=== PATIENT | male | born 1995 | race Caucasian/White ===

== ENCOUNTER → 2019-10-23 | Outpatient (REF) | payer OTHER ==
[2019-10-23 21:53] LABS: CHLAMYDIA DNA AMPLIFICATION POSITIVE (NEGATIVE); GC DNA AMPLIFICATION NEGATIVE (NEGATIVE)
[2019-10-24 10:58] LABS: HEPATITIS B SURFACE ANTIBODY NEGATIVE (POSITIVE); HEPATITIS B SURFACE ANTIGEN NEGATIVE (NEGATIVE); HEPATITIS C VIRUS ABY INDEX 0.1 INDEX (<0.8)
[2019-10-24 13:47] LABS: HIV 1&2 SCREEN CENTAUR NEGATIVE (NEGATIVE)
== END ==
LOC: M LABDRWAD 15:43
PROVIDERS: ATTEND Physician Assistant
DX: Z20.9 Contact with and (suspected) exposure to unspecified communicable disease (principal)

== ENCOUNTER → 2020-09-17 | Outpatient (CLI) | payer BC ==
--- NOTE | 2020-09-17 10:51 | REPVR ---
PROCEDURE INFORMATION: Exam: MR Lumbar Spine Without and With Contrast Exam date and time: 09/17/2020 9:27 AM Age: 25 years old Clinical indication: Low back pain; Additional info: Sciatica TECHNIQUE: Imaging protocol: Multiplanar magnetic resonance images of the lumbar spine without and with intravenous contrast. Contrast material: PROHANCE; Contrast volume: 20 ml; Contrast route: INTRAVENOUS (IV); COMPARISON: No relevant prior studies available. FINDINGS: Vertebrae: There is straightening of the lumbar spine which could be secondary to positioning or muscle spasm. The lumbar vertebral bodies are normal in height,signal intensity and alignment.No acute fracture or dislocation is seen. Spinal epidural space: There is no evidence of epidural masses or hemorrhage. Spinal cord: The conus medullaris is normal. No abnormal contrast enhancement is seen. L1-L2: There is no significant degenerative disc herniation.The spinal canal and neural foramina are patent and without significant stenosis. L2-L3: There is no significant degenerative disc herniation.The spinal canal and neural foramina are patent and without significant stenosis. L3-L4: There is no significant degenerative disc herniation.The spinal canal and neural foramina are patent and without significant stenosis. L4-L5: Examination reveals the L4-L5 disc to be mildly reduced in height and T2 signal indicating degeneration. It also demonstrates a large posterior central herniation causing severe spinal canal stenosis and marked compression and posterior displacement of the thecal sac and crowding of the cauda equina nerve roots at this level. There is severe bilateral lateral recess narrowing noted as well.There is mild bilateral foraminal stenosis. L5-S1: There is no significant degenerative disc herniation.The spinal canal and neural foramina are patent and without significant stenosis. Soft tissues: The prevertebral soft tissues appear normal. Other findings: Remainder of the lumbar disc spaces are well maintained. IMPRESSION: 1. Examination reveals the L4-L5 disc to be mildly reduced in height and T2 signal indicating degeneration. It also demonstrates a large posterior central herniation causing severe spinal canal stenosis and marked compression and posterior displacement of the thecal sac and crowding of the cauda equina nerve roots at this level. There is severe bilateral lateral recess narrowing noted as well.There is mild bilateral foraminal stenosis. This is a surgical disc and clinical correlation to exclude cauda equina syndrome. Neuro surgical or orthopedic consultation is recommended. 2. No abnormal contrast enhancement is seen. Electronically signed by: Rodney Bass On 09/17/2020 10:50:56 AM
== END ==
LOC: M PLARAD 08:09
PROVIDERS: ATTEND Physician Assistant
DX: M54.31 Sciatica, right side (principal); M51.36 Other intervertebral disc degeneration, lumbar region

== ENCOUNTER → 2020-09-18 | Outpatient (CLI) | payer BC | LOC: M LABSMTC 11:26 | PROVIDERS: ATTEND Anesthesiology | DX: Z20.828 Contact with and (suspected) exposure to other viral communicable diseases (principal) ==

== ENCOUNTER 2020-09-19 10:18 | Day surgery (SDC) | payer BC ==
[~2020-09-19] VITALS: Ht 177.8 cm; Wt 127.0 kg
[~2020-09-19 10:18] MED LIST: GABAPENTIN 300 MG CAP PO ONE; LIDOCAINE 1% MDV 20ML VIAL SQ PRN; LIDOCAINE 2% 100MG/5ML SDV (FOR ANES.) As Ordered ONE; LR 1,000 ML IV ONE; MIDAZOLAM INJ 2MG/2ML VIAL (J2250 PER 1MG) As Ordered ONE; ONDANSETRON 4MG/2ML VIAL As Ordered ONE; PERCOCET 5MG/325MG TAB PO ONE; ROCURONIUM BROMIDE 50 MG/5 ML VIAL As Ordered ONE; ceFAZolin SOD 1 GM in D5W MINI-BAG PLUS 50 ML IV ONE; ceFAZolin SOD 2 GM in IV 1 EA IV ONE; dexameTHASONE 4 MG/ML 1ML VIAL (J1100 PER 1MG) As Ordered ONE; fentaNYL 250 MCG/5 ML INJECTION (J3010) As Ordered ONE; propofoL 200 MG/20 ML VIAL As Ordered ONE
[2020-09-19] MEDS ORDERED: BUPIVACAINE HCL 0.25% 10ML VIAL As Ordered ONE (11:59)
[2020-09-19] MEDS ORDERED: TRANEXAMIC ACID 100 MG/ML 10ML VIAL As Ordered ONE (11:59)
[2020-09-19] MEDS ORDERED: THROMBIN SOLN 20,000 UNITS KIT As Ordered ONE (11:59)
[2020-09-19] MEDS ORDERED: BUPIVACAINE HCL 0.25% 30ML VIAL As Ordered ONE (11:59)
[2020-09-19] MEDS ORDERED: BACITRACIN PWD 50,000 UNITS VIAL As Ordered ONE (12:00)
[2020-09-19] MEDS ORDERED: BUPIVACAINE LIPOSOME/PF 1.3% 20ML VIAL (13.3MG/ML)(EXPAREL)(C9290 PER1MG) As Ordered ONE (12:00)
[2020-09-19] MEDS ORDERED: EPINEPHrine INJ 1 MG/ML 1ML AMP As Ordered ONE (12:00)
[2020-09-19] MEDS ORDERED: BUPIVACAINE/EPIN 0.5% 30 ML VIAL As Ordered ONE (12:01)
[2020-09-19] MEDS: BUPIVACAINE/EPIN 0.25% 30 ML VIAL As Ordered ONE ×2 (12:44→13:24)
--- NOTE | 2020-09-19 13:57 | REP ---
INDICATION: RIGHT L4/L5 MICRODISECTOMY. COMPARISON: None. TECHNIQUE: Single cross-table lateral view of the lumbar spine intraoperatively. FINDINGS: The tip of a metallic probe is seen posterior to the L5 vertebral body. IMPRESSION: Tip of a metallic probe is seen posterior to the L5 vertebral body. <Electronically signed by Erasmo Lea > 09/19/20 [id number]
[2020-09-19] MEDS ORDERED: GLYCOPYRROLATE INJ 0.2 MG/ML 2 ML VIAL As Ordered ONE (14:40)
[2020-09-19] MEDS ORDERED: NEOSTIGMINE 10MG/10ML VIAL (J2710 PER 0.5MG) As Ordered ONE (14:40)
[2020-09-19] MEDS ORDERED: ACETAMINOPHEN 1000MG 100ML IV BTL (OFIRMEV) (J0131 PER 10MG) As Ordered ONE (15:00)
[2020-09-19] MEDS ORDERED: LR 1,000 ML IV SCH ×2 (15:35)
[2020-09-19] MEDS ORDERED: oxyCODONE 5MG TAB PO PRN (15:35)
[2020-09-19] MEDS ORDERED: ONDANSETRON 4MG/2ML VIAL IV PRN (15:35)
[2020-09-19] MEDS ORDERED: fentaNYL 100 MCG/2 ML INJECTION (J3010) IV PRN (15:35)
[2020-09-19] MEDS ORDERED: PERCOCET 5MG/325MG TAB PO PRN (15:40)
[2020-09-19] MEDS ORDERED: PROMETHAZINE INJ 25 MG/ML VIAL (J2550) IV PRN (15:40)
[2020-09-19] MEDS ORDERED: HYDROMORPHONE HCL 0.5 MG/ 0.5 ML SYRINGE (J1170 PER 1) IV PRN (15:45)
[2020-09-19 16:45] VITALS: BP 112/60
[2020-09-19 17:15] VITALS: BP 108/66
[2020-09-19 18:15] VITALS: BP 99/58
[2020-09-19] MEDS: ceFAZolin SOD 1 GM in D5W MINI-BAG PLUS 50 ML IV SCH (18:20)
[2020-09-19 19:15] VITALS: BP 100/57
[2020-09-19] MEDS: ceFAZolin SOD 2 GM in IV 1 EA IV SCH (20:08)
[2020-09-19 20:15] VITALS: BP 102/63
[2020-09-19] MEDS ORDERED: METAMUCIL (PSYLLIUM) PACKET PO ONE (21:00)
[2020-09-19] MEDS: PERCOCET 5MG/325MG TAB PO PRN (21:44)
[2020-09-19 22:00] VITALS: BP 136/70
[2020-09-20] MEDS: ceFAZolin SOD 1 GM in D5W MINI-BAG PLUS 50 ML IV SCH (00:55)
[2020-09-20] MEDS: ceFAZolin SOD 2 GM in IV 1 EA IV SCH (01:44)
[2020-09-20] MEDS: PERCOCET 5MG/325MG TAB PO PRN ×2 (01:45→09:21)
[2020-09-20 02:00] VITALS: BP 131/79
[2020-09-20 06:00] VITALS: BP 125/82
[2020-09-20] MEDS ORDERED: PERC5TAB12 PO (07:52)
--- NOTE | 2020-09-20 08:42 | RO ---
OPERATIVE NOTE DATE OF OPERATION: 09/19/2020 PREOPERATIVE DIAGNOSIS: Severe spinal stenosis with right lower extremity radiculopathy secondary to very large disk herniation at L4-5. POSTOPERATIVE DIAGNOSIS: Severe spinal stenosis with right lower extremity radiculopathy secondary to very large disk herniation at L4-5. PROCEDURE PERFORMED: Microdiskectomy right L4-5, modifier 22 will be attended because of body mass index greater than 40 extended with time and difficulty required for this procedure including additional time and OR personnel positioning and additional time and difficulty implementing the procedure including the use of special retractors. SURGEON: Les Avila MD BAKESHOP CLEANER: Wang Salazar PA-C ANESTHESIA: General. ESTIMATED BLOOD LOSS: Less than 40. COMPLICATIONS: None. INDICATIONS: 25-year-old gentleman with severe discomfort down the right lower extremity bothering him for a week, who had a recent MRI reflecting very severe spinal stenosis concerning for compression of the cauda equina. The patient elects for operative intervention. Intent reviewed in detail including richard discussion of the pathology involved, alternatives to the surgery such as doing nothing and the risks of that, surgery proposed and risks including but not limited to pain, failure, infection, bleeding, blood loss, need for more surgery, need for fusion surgery or instability, blood clots or other complications. He agrees to proceed. DESCRIPTION OF PROCEDURE: Identified in the holding area, right side verified, brought to the operating room, once anesthesia was administered he was positioned on the Jake frame. He was taped to the bed to accommodate his body habitus. Knees were slightly flexed, axillary rolls were utilized. Once I and the process development chemist were comfortable with the patient's positioning he was sterilely prepped and draped in the usual fashion. Time out was accomplished. We outlined the incision based on deep palpation of the iliac crest, incision was infiltrated with 0.25% Marcaine with Epinephrine. A 7 cm incision was made. This was developed down through skin and subcuticular tissues to the posterior lumbar fascia, pair of cerebellar retractors were utilized at this stage. I sharply reflected the posterior lumbar fascia crossing the fibers and dissected along the lamina of L5. I drilled the lamina of L5 with the high speed bur, placed the Kirkland Gabriel and then we obtained a cross-table lateral x-ray to verify our level. The dissection was then developed superior to the developed rostral to the L5 lamina exposing the L4 lamina and the L4-5 interspace. We selected the 95 mm Shadow Line retractor blades and also placed 65 mm blades to retract the soft tissue on both sides of the wound more superficially. Once this was accomplished my loupe and headlamps were removed and we brought in the sterilely draped operating microscope. Mr. Salazar utilized oculars on the patient's left, I on the right. I utilized the Leksell to remove posterior lamina of 4. I then utilized the high speed bur to implement right unilateral laminotomy/laminectomy developing this superiorly to the bare area of 4, undercutting the spinous process of 4, undercutting the spinous process of 5 and anteriorly to the bare area of 5, the facet complex I protected as much as possible, approximately one bur width of the inferior facet of 4 was involved in the laminotomy. Once this was accomplished I elevated ligamentum flavum with curettes and exposed the thecal sac. The thecal sac was markedly elevated and subligamentous disk protrusion was directly visualized and clearly severely displacing the traversing nerve root superiorly and medially. Bipolar cautery was utilized. Mr. Salazar then utilized the suction John to assist with retraction. I then opened the posterior longitudinal ligament/annular structure using an 11-blade and removed disk material piecemeal fashion using Boyd pituitaries, regular pituitaries, bipolar cautery was utilized. We used Isael Rios to verify there was no additional retrieval disk material. I utilized the bipolars to coagulate some frayed cartilaginous endplate and this was removed using Deckers. I utilized the curved Kerrisons to remove the tip of the superior facet of L5 on the patient's right and we palpated the neural foramina on the right at 4-5, it was patent. No active bleeding was appreciated. Irrigation was accomplished. The retractors were removed. We utilized again pair of cerebellars and Mr. Salazar utilized the Solorzano retractors then to retract soft tissue so that we could close the posterior lumbar fascia which was closed with interrupted #0 Vicryl stitch. These retractors were then removed and we again irrigated. Exparel solution was injected into the subcuticular and fascial tissue for perioperative pain management, approximately 20 mL of mixture consisting of 20 mL Exparel, 20 mL Marcaine without Epinephrine and 20 mL saline. Deep dermis was reapproximated with interrupted stitch. Prineo dressing was applied. The patient was extubated and moved to the recovery room in good condition. For further details please refer to the medical record. Mr. Salazar was present and participated in the entirety of the case.
[2020-09-20 10:00] VITALS: BP 115/68
== END 2020-09-20 12:45 | disposition home or self-care (01) ==
LOC: M SDC 10:18 → M MS5PR 16:40 → M SDC 09-20 12:45
PROVIDERS: ATTEND Orthopaedic Surgery
DX: M48.061 Spinal stenosis, lumbar region without neurogenic claudication (principal); M51.36 Other intervertebral disc degeneration, lumbar region; M54.16 Radiculopathy, lumbar region
CPT/HCPCS: 36415; 63030; 72100; 86850; 86900; 86901; 88304; 96361; 96365; 96366; C1763; C9290; J0131; J0171; J0690; J1100; J2250; J2405; J2710; J3010

== ENCOUNTER → 2022-04-16 | Outpatient (REF) | payer BC ==
[~2022-04-16] MED LIST changes: -GABAPENTIN 300 MG CAP PO ONE; -LIDOCAINE 1% MDV 20ML VIAL SQ PRN; -LIDOCAINE 2% 100MG/5ML SDV (FOR ANES.) As Ordered ONE; -LR 1,000 ML IV ONE; -MIDAZOLAM INJ 2MG/2ML VIAL (J2250 PER 1MG) As Ordered ONE; -ONDANSETRON 4MG/2ML VIAL As Ordered ONE; +PERC5TAB12 PO; -PERCOCET 5MG/325MG TAB PO ONE; -ROCURONIUM BROMIDE 50 MG/5 ML VIAL As Ordered ONE; -ceFAZolin SOD 1 GM in D5W MINI-BAG PLUS 50 ML IV ONE; -ceFAZolin SOD 2 GM in IV 1 EA IV ONE; -dexameTHASONE 4 MG/ML 1ML VIAL (J1100 PER 1MG) As Ordered ONE; -fentaNYL 250 MCG/5 ML INJECTION (J3010) As Ordered ONE; -propofoL 200 MG/20 ML VIAL As Ordered ONE
[2022-04-16 13:12] LABS: HEMATOCRIT 48.4 % (42.0-52.0); HEMOGLOBIN 15.9 g/dl (13.5-17.5); MEAN CORPUSCULAR HEMOGLOBIN 29.7 pg (27.0-33.0); MEAN CORPUSCULAR HGB CONC 32.9 g/dl (32.0-36.5); MEAN CORPUSCULAR VOLUME 90.3 fl (80.0-96.0); PLATELET COUNT, AUTOMATED 310 10^3/uL (150-450); RED BLOOD COUNT 5.36 10^6/uL (4.30-6.10); WHITE BLOOD COUNT 8.6 10^3/uL (4.0-10.0)
[2022-04-16 15:08] LABS: ALBUMIN 4.1 GM/DL (3.2-5.2); ALT/SGPT 39 U/L (12-78); BILIRUBIN,TOTAL 0.3 MG/DL (0.2-1.0); BLOOD UREA NITROGEN 12 MG/DL (7-18); CALCIUM LEVEL 9.3 MG/DL (8.5-10.1); CARBON DIOXIDE LEVEL 29 MEQ/L (21-32); CHLORIDE LEVEL 108 MEQ/L (98-107); CHOLESTEROL LEVEL 165 MG/DL (<200); CHOLESTEROL RISK RATIO 3.928 (<5); CREATININE FOR GFR 0.85 MG/DL (0.70-1.30); FREE T4 0.96 NG/DL (0.76-1.46); GLOMERULAR FILTRATION RATE > 60.0 (>60); GLUCOSE, FASTING 97 MG/DL (70-100); HDL CHOLESTEROL 42 MG/DL (>40); LDL CHOLESTEROL 94 MG/DL (<100); NON-HDL-C 123 MG/DL; POTASSIUM SERUM 4.9 MEQ/L (3.5-5.1); SODIUM LEVEL 140 MEQ/L (136-145); THYROID STIMULATING HORMONE 0.531 uIU/ML (0.358-3.740); TOTAL PROTEIN 7.3 GM/DL (6.4-8.2); TRIGLYCERIDES LEVEL 147 MG/DL (<150)
== END ==
LOC: M SFHCADAM 08:30
PROVIDERS: ATTEND Physician Assistant
DX: E66.01 Morbid (severe) obesity due to excess calories (principal); L30.9 Dermatitis, unspecified; R05.2 Subacute cough; Z13.220 Encounter for screening for lipoid disorders

== ENCOUNTER → 2024-05-14 | Outpatient (CLI) | payer BC ==
[2024-05-14 10:01] LABS: BASO % 0.5 % (0.0-1.0); EOS # 0.1 10^3/uL (0.0-0.5); EOS % 1.5 % (0.0-3.0); HEMATOCRIT 46.1 % (42.0-52.0); HEMOGLOBIN 15.2 g/dl (13.5-17.5); LYMPH % 33.4 % (24.0-44.0); MEAN CORPUSCULAR HEMOGLOBIN 29.7 pg (27.0-33.0); MEAN CORPUSCULAR VOLUME 90.2 fl (80.0-96.0); MONO # 0.4 10^3/uL (0.0-0.8); MONO % 6.6 % (2.0-8.0); NEUTROPHILS # 3.5 10^3/uL (1.5-8.5); NEUTROPHILS % 57.8 % (36.0-66.0); PLATELET COUNT, AUTOMATED 230 10^3/uL (150-450); RED BLOOD COUNT 5.11 10^6/uL (4.30-6.10); WHITE BLOOD COUNT 6.1 10^3/uL (4.0-10.0)
[2024-05-14 10:26] LABS: ALBUMIN 4.2 G/DL (3.2-5.2); ALKALINE PHOSPHATASE 101 U/L (40-129); ALT/SGPT 19 U/L (7.0-40); AST/SGOT 12 U/L (<34); BILIRUBIN,TOTAL 0.6 MG/DL (0.3-1.2); BLOOD UREA NITROGEN 15 MG/DL (9-23); CALCIUM LEVEL 9.7 MG/DL (8.5-10.1); CARBON DIOXIDE LEVEL 30 MMOL/L (20-31); CHLORIDE LEVEL 109 MMOL/L (98-107); CHOLESTEROL LEVEL 147 MG/DL (<200); CHOLESTEROL RISK RATIO 3.58 (<5); CREATININE FOR GFR 0.78 MG/DL (0.70-1.30); GLOMERULAR FILTRATION RATE > 60.0 (>60); GLUCOSE, FASTING 85 MG/DL (60-100); LDL CHOLESTEROL 90.8 MG/DL (<100); SODIUM LEVEL 143 MMOL/L (136-145); TOTAL PROTEIN 7.3 G/DL (5.7-8.2); TRIGLYCERIDES LEVEL 76 MG/DL (<150)
== END ==
LOC: M LAB 09:03
PROVIDERS: ATTEND Physician Assistant
DX: E78.5 Hyperlipidemia, unspecified (principal); E66.9 Obesity, unspecified

== ENCOUNTER → 2024-11-09 | Outpatient (CLI) | payer BC ==
[2024-11-09 08:36] LABS: HEMATOCRIT 44.9 % (42.0-52.0); HEMOGLOBIN 15.2 g/dl (13.5-17.5); MEAN CORPUSCULAR HEMOGLOBIN 29.9 pg (27.0-33.0); MEAN CORPUSCULAR HGB CONC 33.9 g/dl (32.0-36.5); MEAN CORPUSCULAR VOLUME 88.4 fl (80.0-96.0); PLATELET COUNT, AUTOMATED 250 10^3/uL (150-450); RED BLOOD COUNT 5.08 10^6/uL (4.30-6.10); WHITE BLOOD COUNT 7.7 10^3/uL (4.0-10.0)
[2024-11-09 09:05] LABS: ALBUMIN 4.4 G/DL (3.2-5.2); ALKALINE PHOSPHATASE 94 U/L (40-129); ALT/SGPT 17 U/L (7.0-40); AST/SGOT 13 U/L (<34); BILIRUBIN,TOTAL 0.6 MG/DL (0.3-1.2); BLOOD UREA NITROGEN 16 MG/DL (9-23); CALCIUM LEVEL 9.3 MG/DL (8.5-10.1); CARBON DIOXIDE LEVEL 31 MMOL/L (20-31); CHLORIDE LEVEL 104 MMOL/L (98-107); CHOLESTEROL LEVEL 124 MG/DL (<200); CHOLESTEROL RISK RATIO 2.95 (<5); GLOMERULAR FILTRATION RATE > 90.0 (>60); GLUCOSE, FASTING 83 MG/DL (60-100); HDL CHOLESTEROL 41.9 MG/DL (>40); LDL CHOLESTEROL 65.9 MG/DL (<100); NON-HDL-C 82.1 MG/DL; POTASSIUM SERUM 4.6 MMOL/L (3.5-5.1); SODIUM LEVEL 142 MMOL/L (136-145); TRIGLYCERIDES LEVEL 81 MG/DL (<150)
== END ==
LOC: M LAB 07:43
PROVIDERS: ATTEND Physician Assistant
DX: E78.5 Hyperlipidemia, unspecified (principal); R73.01 Impaired fasting glucose